=== PATIENT | male | born 1950 | race Caucasian/White ===

== ENCOUNTER 2017-10-24 10:54 | Day surgery (SDC) | payer OTHER ==
[~2017-10-24] VITALS: Ht 175.3 cm; Wt 86.2 kg
[~2017-10-24 10:54] MED LIST: ADULT ASPIRIN81 MG PO; ANDROGEL150 GM TD; DAILY MULTIPLE1 EACH PO; FARXIGA5 MG PO; GABAPENTIN300 MG PO; GLIPIZIDE ER2.5 MG PO; JANUVIA100 MG PO; LISINOPRIL20 MG PO; LO-DOSE ASPIRIN81 M1 PO; METFORMIN HCL1000 MG PO; METOPROLOL TART50 MG PO; OZEMPIC1 MG/0.75 SC; SIMVASTATIN80 MG PO; TESTONE CI200 MG/1 M IM; TESTOSTERO100 MG/11 IM; TRAMADOL HCL50 MG PO; VICTOZA 2-0.6 MG/0.1 SC; XANAX0.25 MG PO; XARELTO20 MG PO
[2017-10-24 11:35] VITALS: BP 99/65
[2017-10-24 17:35] VITALS: BP 99/74
[2017-10-24 18:20] VITALS: BP 109/60
[2017-10-24 18:45] VITALS: BP 110/70
== END 2017-10-24 19:30 | disposition home or self-care (01) ==
LOC: SDC 10:54
PROVIDERS: Orthopaedic Surgery Hand Surgery
DX: M75.121 Complete rotator cuff tear or rupture of right shoulder, not specified as traumatic (principal); M25.811 Other specified joint disorders, right shoulder; M75.21 Bicipital tendinitis, right shoulder; I10 Essential (primary) hypertension; E11.9 Type 2 diabetes mellitus without complications; I25.2 Old myocardial infarction; I48.91 Unspecified atrial fibrillation; Z79.84 Long term (current) use of oral hypoglycemic drugs; Z87.891 Personal history of nicotine dependence; Z79.82 Long term (current) use of aspirin; Z95.5 Presence of coronary angioplasty implant and graft
CPT/HCPCS: 82948; C1713; J0171; J0330; J0690; J2250; J2370; J2795; J3010